=== PATIENT | female | born 1960 | race Hispanic/Latino ===

== ENCOUNTER 2021-10-24 16:30 | Inpatient (IN) | payer BC ==
[2021-10-24 13:35] VITALS: BMI 30.2
[2021-10-24 16:40] LABS: Hemoglobin 14.6 g/dL (12.0-15.5); Mean Corpuscular Hemoglobin 31.9 pg (27.0-33.0); Mean Corpuscular Volume 93.9 fl (81.6-98.3); Mean Platelet Volume 11.8 fl (7.4-10.4); Platelet Count 252 10x3/uL (150-450); RBC Distribution Width 12.3 % (11.5-14.5); Red Blood Cell (RBC) Count 4.57 10x6/uL (3.90-5.03); White Blood Cell (WBC) Count 12.2 10x3/uL (3.5-10.5)
[2021-10-24 16:58] LABS: PTT 30.3 sec (22.0-33.0); Prothrombin Time 10.4 sec (9.5-12.1)
[2021-10-24 16:59] LABS: Anion Gap 16 mmol/L (10-20); BUN (Urea Nitrogen) 14 mg/dL (9.8-20.1); Calc. Creatinine Clearance 0 mL/min (70-130); Calcium 9.9 mg/dL (7.8-10.44); Carbon Dioxide 23 mmol/L (23-31); Chloride 103 mmol/L (98-107); Glucose 104 mg/dL (80-115); Potassium 4.2 mmol/L (3.5-5.1); Sodium 138 mmol/L (136-145)
[2021-10-25 00:31] LABS: SARS-CoV-2 PCR by NAA Not Detected (NotDetected)
[2021-10-26] MEDS ORDERED: Lidocaine 1% MPF 2 ML VIAL ONE (06:15)
[2021-10-26] MEDS ORDERED: Famotidine/PF 20 mg/2ml Vial ONE (06:15)
[2021-10-26] MEDS ORDERED: Bupivacaine 0.25% HCL 30 ML VIAL ONE (06:23)
[2021-10-26] MEDS ORDERED: EPINEPHrine 1 MG/ML AMP ONE (06:24)
[2021-10-26] MEDS ORDERED: Propofol 1,000 MG/100 ML VIAL IV ONE (07:00)
[2021-10-26] MEDS ORDERED: Ketamine 50 MG/ML (10ML VIAL) ONE (07:00)
[2021-10-26] MEDS ORDERED: Fentanyl 250 MCG/5 ML VIAL ONE (07:05)
[2021-10-26] MEDS ORDERED: PROPOFOL 20 ML ONE (07:05)
[2021-10-26] MEDS ORDERED: Succinylcholine 200 MG/10 ml SYRINGE FS ONE (07:06)
[2021-10-26] MEDS ORDERED: Lidocaine 1% PF 5 ML VIAL ONE (07:16)
[2021-10-26] MEDS ORDERED: ceFAZolin 2 GM/Dextrose 50 ML IVPB ONE (07:17)
[2021-10-26] MEDS ORDERED: Midazolam HCl 2 mg/2 ml Vial ONE (07:17)
[2021-10-26] MEDS ORDERED: Ventolin HFA Inhaler 60 PUFF INHALER INH PRN (10:35)
[2021-10-26] MEDS ORDERED: ALPRAZolam 0.25 MG TAB PO PRN (10:35)
[2021-10-26] MEDS ORDERED: Ondansetron ODT 4 MG TAB PO PRN (11:01)
[2021-10-26] MEDS: Morphine 4 MG/ML VIAL SLOW IVP PRN ×3 (12:20→21:17)
[2021-10-26] MEDS: HYDROcodone/Acetaminophen 10/325 mg Tablet PO PRN ×3 (14:26→23:06)
[2021-10-26] MEDS: ceFAZolin 2 GM/Dextrose 50 ML 2 GM in Premix Bag 1 BAG IVPB SCH ×2 (17:16→23:12)
[2021-10-26] MEDS: Aspirin 81 mg Enteric Coated Tablet PO SCH (20:02)
[2021-10-27] MEDS: HYDROcodone/Acetaminophen 10/325 mg Tablet PO PRN ×2 (04:08→09:20)
[2021-10-27] MEDS: ceFAZolin 2 GM/Dextrose 50 ML 2 GM in Premix Bag 1 BAG IVPB SCH (08:27)
[2021-10-27] MEDS: Aspirin 81 mg Enteric Coated Tablet PO SCH (08:29)
[2021-10-27 08:38] VITALS: BP 119/59
[2021-10-27 08:54] VITALS: TEMP 97.3
[2021-10-27] MEDS ORDERED: Cholecalciferol 1,000 UNITS (25 MCG) TAB PO SCH (09:00)
[2021-10-27] MEDS ORDERED: Amlodipine 10 MG TAB PO SCH (09:00)
[2021-10-27] MEDS ORDERED: Fluticasone Propionate Nasal Spray 16 gm Bottle NASAL SCH (09:00)
[2021-10-27] MEDS ORDERED: Loratadine 10 MG TAB PO SCH (09:00)
== END 2021-10-27 11:25 | disposition home or self-care (01) | DRG 455 ==
LOC: CSHERHOLD 10-26 05:26 → CSHTELE 10-26 11:55 → EDSTATUS 10-26 12:05
PROVIDERS: ADMIT Orthopaedic Surgery; ATTEND Orthopaedic Surgery
PROC: 0SG00AJ Fusion of Lumbar Vertebral Joint with Interbody Fusion Device, Posterior Approach, Anterior Column, Open Approach (ICD-10-PCS; principal; 2021-10-26)
PROC: 0SG0071 Fusion of Lumbar Vertebral Joint with Autologous Tissue Substitute, Posterior Approach, Posterior Column, Open Approach (ICD-10-PCS; 2021-10-26)
PROC: 0SB20ZZ Excision of Lumbar Vertebral Disc, Open Approach (ICD-10-PCS; 2021-10-26)
PROC: 4A11X4G Monitoring of Peripheral Nervous Electrical Activity, Intraoperative, External Approach (ICD-10-PCS; 2021-10-26)
DX: M48.061 Spinal stenosis, lumbar region without neurogenic claudication (principal); E66.9 Obesity, unspecified; M06.9 Rheumatoid arthritis, unspecified; M41.86 Other forms of scoliosis, lumbar region; Z20.822 Contact with and (suspected) exposure to COVID-19; M51.16 Intervertebral disc disorders with radiculopathy, lumbar region; Z88.2 Allergy status to sulfonamides; Z88.8 Allergy status to other drugs, medicaments and biological substances; Z88.1 Allergy status to other antibiotic agents; Z90.710 Acquired absence of both cervix and uterus; Z90.89 Acquired absence of other organs; Z98.1 Arthrodesis status; Z68.30 Body mass index [BMI] 30.0-30.9, adult
CPT/HCPCS: 72110; 80048; 85027; 85610; 85730; 86850; 86900; 86901; 94640; 94760; C1713; C1889; J0171; J0690; J2250; J2270; J2704; J3010; J7620; S0020; S0028; U0003; U0005

== ENCOUNTER 2022-04-27 12:55 | Outpatient (CLI) | payer BC | END 2022-04-27 12:56 | disposition home or self-care (01) | LOC: CSHRAD 12:55 | PROVIDERS: ATTEND Orthopaedic Surgery | DX: M54.50 Low back pain, unspecified (principal); Z98.890 Other specified postprocedural states; M51.36 Other intervertebral disc degeneration, lumbar region; M51.37 Other intervertebral disc degeneration, lumbosacral region | CPT/HCPCS: 72100 ==